=== PATIENT | male | born 1990 | race Caucasian/White ===

== ENCOUNTER 2017-03-06 00:04 | Emergency (ER) | payer MEDICAID ==
[~2017-03-06] VITALS: Ht 175.3 cm; Wt 99.8 kg
[2017-03-06 00:21] LABS: URINE BILIRUBIN - DIPSTICK NEGATIVE (NEG); URINE BLOOD NEGATIVE (NEG)
[2017-03-06] MEDS ORDERED: LITHATE5 MG PO (00:22)
[2017-03-06] MEDS ORDERED: PAXIL40 M1 PO (00:23)
[2017-03-06 00:28] LABS: AMPHETAMINES/METAMPHETAMINES NEGATIVE ng/mL (<1000)
[2017-03-06] MEDS ORDERED: TRAZODONE 50MG50 MG PO (00:32)
[2017-03-06] MEDS ORDERED: BUPROPION HYDR100 M2 PO (00:33)
[2017-03-06] MEDS ORDERED: LEVOTHYROXINE0.1 MG PO (00:33)
[2017-03-06] MEDS ORDERED: ATIVAN GENERIC0.5 MG PO (00:34)
[2017-03-06] MEDS ORDERED: METOPROLOL 25 M25 MG PO (00:35)
[2017-03-06] MEDS ORDERED: OLANZAPINE5 MG PO (00:35)
[2017-03-06] MEDS ORDERED: VENLAFAXINE75 M1 PO (00:36)
[2017-03-06 00:39] LABS: HEMOGLOBIN 15.9 g/dL (14.1-18.0); LYMPH # 2.8 K/mm3 (0.7-4.5); LYMPH % 36.3 % (10-50)
--- NOTE | 2017-03-06 00:43 | Emergency Room Report ---
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 N Clinical Suspician of Infection? N Mental Status: 1 - Regular (Normal Baseline) Sepsis Risk:Low Sepsis Risk Have you (or family members/close friends) recently traveled outside the [place]? N If Yes, where/when: Have you had exposure to infectious disease within the past month? N TB? Other? Specify: Source patient, RN notes reviewed, family, old records Exam Limitations no limitations Comment pt upset at intermediate and has hx of schizophrenia and has auditory hallucinations at times but none now - he denied overdose and no etoh and no suicidial thoughts - has been in [facility] in past Cardiac Chest Pain Chest pain indicative of cardiac No Timing/Duration this evening Severity moderate ALLERGIES Coded Allergies: lurasidone (From LATUDA) (Intermediate, 03/06/17) Home Medications Reported Medications LITHIUM ASPARTATE (Lithate) 5 MG PO TID Paroxetine HCl (Paxil) 40 MG PO DAILY TRAZODONE HCL (Trazodone HCl) 50 MG PO QHS BUPROPION HCL (Bupropion HCl Sr) 75 MG PO BID LEVOTHYROXINE SOD (Synthroid) 0.1 MG PO DAILY Lorazepam (Ativan) 0.5 MG PO BID Metoprolol Tartrate (Metoprolol 25MG) 50 MG PO BID Olanzapine (Olanzapine 5MG Tab) 15 MG PO QHS VENLAFAXINE HCL (Venlafaxine HCl ER) 75 MG PO BID History Medical History General CAD? No Angina: No [place]: No Hypertension? Yes Hyperlipidemia? No CHF? No DVT? No PE? No COPD? No Asthma? No Anemia? No GERD? No Gastric ulcers? No GI Bleed? No Hernia? No Thyroid Problems? Yes Hypothyroidism? No CVA? No Seizures? No Diabetes? No Renal Insuffiency? No End Stage Renal Disease? No UTI? No Stones? No BPH? No GB Disease: No Nephritic Syndrome? No Asplenia? No Hepatitis? No Sickle Cell Disease? No Arthritis? No Migraines? No Cataracts? No Glaucoma? No MRSA? No HIV? No TB? No Anxiety? Yes Depression? Yes Cancer? No More? Yes Additional hx: SCHIZOEFFECTIVE Immunization Hx DT/Tetanus Unknown Surgical Hx Previous Surgery?Y TONSILECTOMY Social History Smoking Hx Smoker: Current Some Day Smoker Tobacco: Yes Type Cigarettes Packs/day 1 1/2 - 2 Packs Alcohol Alcohol: No Drugs none Review of Systems All Other Systems Reviewed and Negative Constitutional denies fever Eyes denies drainage ENT denies: ear discharge, epistaxis, throat pain. Respiratory denies cough, denies shortness of breath, denies wheezing Cardiovascular denies chest pain, denies syncope Gastrointestinal denies abdominal pain, denies diarrhea, denies vomiting Genitourinary denies: dysuria, frequency, hesitancy, hematuria. Musculoskeletal denies back pain, denies joint pain, denies joint swelling, denies neck pain Skin denies rash Psychiatric/Neurological see HPI, depressed, denies seizure Physical Exam Vital Signs Vital Signs Date Time Temp Pulse Resp B/P Pulse O2 O2 Flow FiO2 Ox Delivery Rate 03/06 0011 98.4 85 20 148/90 95 - WBC >12,000 or <4,000 or 10% bands? 2 or more SIRS Criteria Met? B/P:148/90 MAP:109 Creatinine >2.0? UA output<0.5ml/kg/hr for 2 hrs? Platelet count >100,000? Lactate >2.0mmol/1? INR >1.2 or PTT > than 60 sec? Evidence of Organ Dysfunction? Provider documented clinical suspician of infection? N Sepsis Criteria Count: 1 Sepsis Risk: Low Sepsis Risk General Appearance no apparent distress Eye Exam - bilateral eye PERRL, bilateral eye EOMI Ear, Nose, Throat normal ENT inspection Neck supple Respiratory Status No: respiratory distress. Lung Sounds bilateral: lungs clear. 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 No Results/Orders Laboratory Tests 03/06/1729: [place] Pending 03/06/1729: Sodium 139, Potassium 3.6, Chloride 104, Carbon Dioxide 26, BUN 8, Creatinine 0.9, Estimated Creat Clear 177, Estimated GFR (MDRD) 103, Glucose 112 H, Calcium 9.2, Total Bilirubin 0.4, AST 33, ALT 79 H, Alkaline Phosphatase 43 L, Total Protein 8.1, Albumin 4.4, Globulin 3.7 H, Albumin/Globulin Ratio 1.2, TSH 3.74, Thyroxine (T4) 7.1, WBC 7.8, RBC 5.03, Hgb 15.9, Hct 47.9, MCV 95.1, RDW 12.9, Plt Count 251, MPV 8.0, Gran % 56.7, Gran # 4.4, Lymphocytes % 36.3, Monocytes % 3.9, Eosinophils % 2.5, Basophils % 0.6, Lymphocytes # 2.8, Monocytes # 0.3, Eosinophils # 0.2, Basophils # 0.1, PUBS MCHC 33.2, MCH 31.5 H , Salicylates 2.9, Acetaminophen 0 L, Alcohols 0 03/06/1714: Opiates Screen NEGATIVE, Urine Methadone Screen NEGATIVE, Barbiturates NEGATIVE, Phencyclidine Screen NEGATIVE, Amphetamines Screen NEGATIVE, Benzodiazepines Screen NEGATIVE, Cocaine Screen NEGATIVE, Marijuana (THC) Screen NEGATIVE, Urine Color YELLOW, Urine Appearance CLEAR, Urine pH 6.5, Ur Specific [place] <= 1.005 , Urine Protein NEGATIVE, Urine Ketones NEGATIVE, Urine Blood NEGATIVE, Urine Nitrate NEGATIVE, Urine Bilirubin NEGATIVE, Urine Urobilinogen 0.2, Ur Leukocyte Esterase NEGATIVE, Ur Squamous Epith Cells 3-5, Amorphous Sediment TRACE, Urine Glucose NEGATIVE Orders Procedure Date/time Status LITHIUM 03/06 42 Active URINALYSIS/COMPLETE 03/06 12 Complete THYROID STIMULATING HORMONE 03/06 12 Complete THYROXINE (T4) 03/06 12 Complete SALICYLATE 03/06 12 Complete DRUG ABUSE SCREEN (TRIAGE) 03/06 12 Complete COMPLETE METABOLIC PANEL 03/06 12 Complete CBC WITH AUTO DIFF 03/06 12 Complete ALCOHOL 03/06 12 Complete Acetaminophen 03/06 12 Complete Departure Departure Time of Disposition 0148 Disposition DC Home or Self Care(routine) Clinical Impression Primary Impression: Schizophrenia Qualifiers: Schizophrenia type: unspecified Qualified Code: F20.9 - Schizophrenia, unspecified Condition STABLE Patient Instructions DI for Post-schizophrenic Depression Additional Instructions resume meds and see your mental health worker Discharge Counseling Counseled pt/family regarding diagnosis, test results, follow up needs ED Critical Care Critical Care No at 0149
--- NOTE | 2017-03-06 00:43 | Emergency Room Report ---
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 N Clinical Suspician of Infection? N Mental Status: 1 - Regular (Normal Baseline) Sepsis Risk:Low Sepsis Risk Have you (or family members/close friends) recently traveled outside the [place]? N If Yes, where/when: Have you had exposure to infectious disease within the past month? N TB? Other? Specify: Source patient, RN notes reviewed, family, old records Exam Limitations no limitations Comment pt upset at custodial and has hx of schizophrenia and has auditory hallucinations at times but none now - he denied overdose and no etoh and no suicidial thoughts - has been in [facility] in past Cardiac Chest Pain Chest pain indicative of cardiac No Timing/Duration this evening Severity moderate ALLERGIES Coded Allergies: lurasidone (From LATUDA) (Intermediate, 03/06/17) Home Medications Reported Medications LITHIUM ASPARTATE (Lithate) 5 MG PO TID Paroxetine HCl (Paxil) 40 MG PO DAILY TRAZODONE HCL (Trazodone HCl) 50 MG PO QHS BUPROPION HCL (Bupropion HCl Sr) 75 MG PO BID LEVOTHYROXINE SOD (Synthroid) 0.1 MG PO DAILY Lorazepam (Ativan) 0.5 MG PO BID Metoprolol Tartrate (Metoprolol 25MG) 50 MG PO BID Olanzapine (Olanzapine 5MG Tab) 15 MG PO QHS VENLAFAXINE HCL (Venlafaxine HCl ER) 75 MG PO BID History Medical History General CAD? No Angina: No [place]: No Hypertension? Yes Hyperlipidemia? No CHF? No DVT? No PE? No COPD? No Asthma? No Anemia? No GERD? No Gastric ulcers? No GI Bleed? No Hernia? No Thyroid Problems? Yes Hypothyroidism? No CVA? No Seizures? No Diabetes? No Renal Insuffiency? No End Stage Renal Disease? No UTI? No Stones? No BPH? No GB Disease: No Nephritic Syndrome? No Asplenia? No Hepatitis? No Sickle Cell Disease? No Arthritis? No Migraines? No Cataracts? No Glaucoma? No MRSA? No HIV? No TB? No Anxiety? Yes Depression? Yes Cancer? No More? Yes Additional hx: SCHIZOEFFECTIVE Immunization Hx DT/Tetanus Unknown Surgical Hx Previous Surgery?Y TONSILECTOMY Social History Smoking Hx Smoker: Current Some Day Smoker Tobacco: Yes Type Cigarettes Packs/day 1 1/2 - 2 Packs Alcohol Alcohol: No Drugs none Review of Systems All Other Systems Reviewed and Negative Constitutional denies fever Eyes denies drainage ENT denies: ear discharge, epistaxis, throat pain. Respiratory denies cough, denies shortness of breath, denies wheezing Cardiovascular denies chest pain, denies syncope Gastrointestinal denies abdominal pain, denies diarrhea, denies vomiting Genitourinary denies: dysuria, frequency, hesitancy, hematuria. Musculoskeletal denies back pain, denies joint pain, denies joint swelling, denies neck pain Skin denies rash Psychiatric/Neurological see HPI, depressed, denies seizure Physical Exam Vital Signs Vital Signs Date Time Temp Pulse Resp B/P Pulse O2 O2 Flow FiO2 Ox Delivery Rate 03/06 0011 98.4 85 20 148/90 95 - WBC >12,000 or <4,000 or 10% bands? 2 or more SIRS Criteria Met? B/P:148/90 MAP:109 Creatinine >2.0? UA output<0.5ml/kg/hr for 2 hrs? Platelet count >100,000? Lactate >2.0mmol/1? INR >1.2 or PTT > than 60 sec? Evidence of Organ Dysfunction? Provider documented clinical suspician of infection? N Sepsis Criteria Count: 1 Sepsis Risk: Low Sepsis Risk General Appearance no apparent distress Eye Exam - bilateral eye PERRL, bilateral eye EOMI Ear, Nose, Throat normal ENT inspection Neck supple Respiratory Status No: respiratory distress. Lung Sounds bilateral: lungs clear. 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 No Results/Orders Laboratory Tests 03/06/1729: [place] Pending 03/06/1729: Sodium 139, Potassium 3.6, Chloride 104, Carbon Dioxide 26, BUN 8, Creatinine 0.9, Estimated Creat Clear 177, Estimated GFR (MDRD) 103, Glucose 112 H, Calcium 9.2, Total Bilirubin 0.4, AST 33, ALT 79 H, Alkaline Phosphatase 43 L, Total Protein 8.1, Albumin 4.4, Globulin 3.7 H, Albumin/Globulin Ratio 1.2, TSH 3.74, Thyroxine (T4) 7.1, WBC 7.8, RBC 5.03, Hgb 15.9, Hct 47.9, MCV 95.1, RDW 12.9, Plt Count 251, MPV 8.0, Gran % 56.7, Gran # 4.4, Lymphocytes % 36.3, Monocytes % 3.9, Eosinophils % 2.5, Basophils % 0.6, Lymphocytes # 2.8, Monocytes # 0.3, Eosinophils # 0.2, Basophils # 0.1, PUBS MCHC 33.2, MCH 31.5 H , Salicylates 2.9, Acetaminophen 0 L, Alcohols 0 03/06/1714: Opiates Screen NEGATIVE, Urine Methadone Screen NEGATIVE, Barbiturates NEGATIVE, Phencyclidine Screen NEGATIVE, Amphetamines Screen NEGATIVE, Benzodiazepines Screen NEGATIVE, Cocaine Screen NEGATIVE, Marijuana (THC) Screen NEGATIVE, Urine Color YELLOW, Urine Appearance CLEAR, Urine pH 6.5, Ur Specific [place] <= 1.005 , Urine Protein NEGATIVE, Urine Ketones NEGATIVE, Urine Blood NEGATIVE, Urine Nitrate NEGATIVE, Urine Bilirubin NEGATIVE, Urine Urobilinogen 0.2, Ur Leukocyte Esterase NEGATIVE, Ur Squamous Epith Cells 3-5, Amorphous Sediment TRACE, Urine Glucose NEGATIVE Orders Procedure Date/time Status LITHIUM 03/06 42 Active URINALYSIS/COMPLETE 03/06 12 Complete THYROID STIMULATING HORMONE 03/06 12 Complete THYROXINE (T4) 03/06 12 Complete SALICYLATE 03/06 12 Complete DRUG ABUSE SCREEN (TRIAGE) 03/06 12 Complete COMPLETE METABOLIC PANEL 03/06 12 Complete CBC WITH AUTO DIFF 03/06 12 Complete ALCOHOL 03/06 12 Complete Acetaminophen 03/06 12 Complete Departure Departure Time of Disposition 0148 Disposition DC Home or Self Care(routine) Clinical Impression Primary Impression: Schizophrenia Qualifiers: Schizophrenia type: unspecified Qualified Code: F20.9 - Schizophrenia, unspecified Condition STABLE Patient Instructions DI for Post-schizophrenic Depression Additional Instructions resume meds and see your mental health worker Discharge Counseling Counseled pt/family regarding diagnosis, test results, follow up needs ED Critical Care Critical Care No at 0149
[2017-03-06 02:03] VITALS: BP 148/90
--- OUTSIDE RECORDS SUMMARY | 2017-03-11 00:45 | External Medical Summary Rpt | CCD ---
Author Author , ZEB Organization ZEB Address Unknown Phone [email or web address] Purpose Continuity of Care Document - 11-04-2013 through 2016 Results Labs Lab Lab Date Result Refere Interp Status Commen Order Detail nces retati t Range on Comprehensive metabolic 2000 panel in Serum or Plasma (07-17-2016 16:30) Sodium 144 137mm complet [Moles/ 017 mmol/L ol/L - ed volume] 16:30 145mm in ol/L Serum or Plasma Potassi 4.2 3.5mm complet um 017 mmol/L ol/L - ed [Moles/ 16:30 5.1mm volume] ol/L in Serum or Plasma Chlorid 105 98mmo complet e 017 mmol/L l/L - ed [Moles/ 16:30 107mm volume] ol/L in Serum or Plasma Carbon 22 22mmo complet dioxide 017 mmol/L l/L - ed , total 16:30 30mmo l/L [Moles/ volume] in Blood Glucose 108 74mg/ High complet 017 mg/dL dL - ed [Mass/v 16:30 106mg olume] /dL in Serum or Plasma Urea 12 7mg/d complet nitroge 017 mg/dL L - ed n 16:30 20mg/ [Mass/v dL olume] in Serum or Plasma Creatin 0.7 0.7mg complet ine 017 mg/dL /dL - ed [Mass/v 16:30 1.5mg olume] /dL in Serum or Plasma Protein 8.5 6.3g/ High complet 017 g/dL dL - ed [Mass/v 16:30 8.2g/ olume] dL in Serum or Plasma Albumin 4.9 3.5g/ complet 017 g/dL dL - ed [Mass/v 16:30 5.0g/ olume] dL in Serum or Plasma Calcium 9.7 8.4mg complet 017 mg/dL /dL - ed [Mass/v 16:30 10.2m olume] g/dL in Serum or Plasma Bilirub 0.4 0.2mg complet in.tota 017 mg/dL /dL - ed l 16:30 1.3mg [Mass/v /dL olume] in Serum or Plasma Asparta 27 U/L 15U/L complet te 017 - ed aminotr 16:30 46U/L ansfera se [Enzyma tic activit y/volum e] in Serum or Plasma Alanine 46 U/L 13U/L complet 017 - ed aminotr 16:30 69U/L ansfera se [Enzyma tic activit y/volum e] in Serum or Plasma Alkalin 48 U/L 38U/L complet e 017 - ed phospha 16:30 126U/ tase L [Enzyma tic activit y/volum e] in Serum or Plasma CBC W Auto Differential panel in Blood (07-17-2016 16:30) Leukocy 6.06 4.510 complet ej 017 10*3/uL *3/uL - ed [#/volu 16:30 me] in 11.01 Blood 0*3/uL by Automat ed count Erythro 5.32 4.510 complet cytes 017 10*6/uL *6/uL - ed [#/volu 16:30 me] in 5.910 Blood *6/uL by Automat ed count Hemoglo 16.2 13.5g complet bin 017 g/dL /dL - ed [Mass/v 16:30 17.5g olume] /dL in Blood Hematoc 47.6 % 41.0% complet rit 017 - ed [Volume 16:30 53.0% Fractio n] of Blood by Automat ed count Erythro 89.5 fL 80.0f complet cyte 017 L - ed mean 16:30 100.0 corpusc fL ular volume [Entiti c volume] by Automat ed count Erythro 30.5 pg 26.0p complet cyte 017 g - ed mean 16:30 34.0p corpusc g ular hemoglo bin [Entiti c mass] by Automat ed count Erythro 34.0 31.0g complet cyte 017 g/dL /dL - ed mean 16:30 37.0g corpusc /dL ular hemoglo bin concent ration [Mass/v olume] by Automat ed count Erythro 13.6 % 12.0% complet cyte 017 - ed distrib 16:30 16.8% ution width [Ratio] by Automat ed count Platele [id number] complet ts 017 10*3/uL *3/uL - ed [#/volu 16:30 me] [place] [id number] Blood *3/uL by Automat ed count Platele 10.2 fL 6.7fL complet t mean 017 - ed volume 16:30 10.8f [Entiti L c volume] in Blood by Automat ed count Neutrop 54 % 45% - complet hils/10 017 80% ed 0 16:30 leukocy ej in Blood by Automat ed count Lymphoc 37 % 15% - complet ytes/10 017 50% ed 0 16:30 leukocy ej in Blood by Automat ed count Monocyt 6 % 0% - complet es/100 017 15% ed leukocy 16:30 ej in Blood by Automat ed count Eosinop 3 % 0% - complet hils/10 017 7% ed 0 16:30 leukocy ej in Blood by Automat ed count Basophi 0 % 0% - complet ls/100 017 2% ed leukocy 16:30 ej in Blood by Automat ed count IMMATUR 0 % 0 complet E 017 ed GRANULO 16:30 CYTE% Nucleat 0 0/100 complet ed 017 /100{WB {WBC} - ed erythro 16:30 C} cytes/1 0/100 00 {WBC} leukocy ej [Ratio] in Blood by Automat ed count Neutrop 3.27 2.010 complet hils 017 10*3/uL *3/uL - ed [#/volu 16:30 me] in 8.810 Blood *3/uL by Automat ed count Lymphoc 2.23 0.710 complet ytes 017 10*3/uL *3/uL - ed [#/volu 16:30 me] in 5.510 Blood *3/uL by Automat ed count Monocyt 0.39 0.010 complet es 017 10*3/uL *3/uL - ed [#/volu 16:30 me] in 1.710 Blood *3/uL by Automat ed count Eosinop 0.15 0.010 complet hils 017 10*3/uL *3/uL - ed [#/volu 16:30 me] in 0.810 Blood *3/uL by Automat ed count Basophi 0.01 0.010 complet ls 017 10*3/uL *3/uL - ed [#/volu 16:30 me] in 0.210 Blood *3/uL by Automat ed count IMMATUR 0.01 <1 complet E 017 10*3/uL ed GRANULO 16:30 CYTE\E\ P\E\ Drugs identified in Urine by Screen method (07-17-2016 16:19) Ampheta NEGATIV NEGATIV complet mines 017 E E ed [Presen 16:19 ce] in Urine by Screen method Barbitu NEGATIV NEGATIV complet rates 017 E E ed [Presen 16:19 ce] in Urine Benzodi NEGATIV NEGATIV complet azepine 017 E E ed s 16:19 [Presen ce] in Urine Cannabi NEGATIV NEGATIV complet noids 017 E E ed [Presen 16:19 ce] in Urine by Screen method Cocaine NEGATIV NEGATIV complet 017 E E ed [Presen 16:19 ce] in Urine by Screen method Opiates NEGATIV NEGATIV complet 017 E E ed [Presen 16:19 ce] in Urine by Screen method
--- OUTSIDE RECORDS SUMMARY | 2017-03-11 00:45 | External Medical Summary Rpt | CCD ---
Author Author , ZEB CARRINGTON Address Unknown Phone [email or web address] Immunization Name Date Rout CVX Reac Dose Comm Prov Is Faci e tion ent ider Refu lity Give sed n Infl 11-1 150 999 Hist NORT No NORT uenz 9-20 ori ONCM ONCM a 14 al A1 A1 Quad Info Inj rmat ion - Sour ce Unsp ecif ied Infl 11-0 144 999 Hist NORT No NORT uenz 1-20 ori ONCM ONCM a, 13 al A1 A1 Intr Info ader rmat m ion - Sour ce Unsp ecif ied Infl 09-1 144 999 Hist NORT No NORT uenz 8-20 ori ONCM ONCM a, 12 al A1 A1 Intr Info ader rmat m ion - Sour ce Unsp ecif ied
--- OUTSIDE RECORDS SUMMARY | 2017-03-11 00:45 | External Medical Summary Rpt | CCD ---
Author Author , ZEB Organization ZEB Address Unknown Phone [email or web address] Purpose Continuity of Care Document - 11-04-2013 [...] [Ratio] by Automat ed count Platele [id number] complet ts 017 10*3/uL *3/uL - ed [#/volu 16:30 me] in [id number] Blood *3/uL by Automat ed count Platele [...]
--- OUTSIDE RECORDS SUMMARY | 2017-03-11 00:45 | External Medical Summary Rpt | CCD ---
Author Author ZEB Address Unknown Phone [email or web address] Purpose Continuity of Care Document - through 2016
--- OUTSIDE RECORDS SUMMARY | 2017-03-11 00:45 | External Medical Summary Rpt | CCD ---
Author Author ZEB Address Unknown Phone [email or web address] Purpose Continuity of Care Document - through 2016
--- OUTSIDE RECORDS SUMMARY | 2017-03-11 00:45 | External Medical Summary Rpt | CCD ---
Author Author , ZEB CARRINGTON Address Unknown Phone [email or web address] Immunization Name Date Rout CVX Reac Dose [...]
--- OUTSIDE RECORDS SUMMARY | 2017-03-11 00:47 | External Medical Summary Rpt ---
Author Author [employer], [employer] Organization [employer] Address Unknown Phone Unavailable Results TSH Observa Value Referen Units Interpr Notes Date tion ce etation Range Thyrotr 0.838 0.270 - mcIU/mL No No Sep 14 opin 4.200 informa informa 2016 [Units/ tion in tion in 8:26 AM volume] source source in data data Serum or Plasma Hemogram Observa Value Referen Units Interpr Notes Date tion ce etation Range LEUKOCY 6.9 4.0 - x10(3)/ No No Sep 14 ERIKA 11.0 mcL informa informa 2017 tion in tion in 6:25 AM source source data data Erythro 5.34 4.30 - x10(6)/ No No Sep 14 cytes 5.81 mcL informa informa 2016 [#/volu tion in tion in 6:25 AM me] in source source Blood data data by Automat ed count Hemoglo 16.3 13.5 - gm/dL No No Sep 14 bin 17.1 informa informa 2016 [Mass/v tion in tion in 6:25 AM olume] source source in data data Blood Hematoc 48.1 38.9 - % No No Sep 14 rit 51.6 informa informa 2016 [Volume tion in tion in 6:25 AM source source Fractio data data n] of Blood by Automat ed count Erythro 90.1 82.5 - fL No No Sep 14 cyte 99.8 informa informa 2017 mean tion in tion in 6:25 AM corpusc source source ular data data volume [Entiti c volume] by Automat ed count Erythro 30.5 27.0 - pg No No Sep 14 cyte 34.3 informa informa 2017 mean tion in tion in 6:25 AM corpusc source source ular data data hemoglo bin [Entiti c mass] by Automat ed count Erythro 33.9 32.1 - gm/dL No No Sep 14 cyte 35.3 informa informa 2016 mean tion in tion in 6:25 AM corpusc source source ular data data hemoglo bin concent ration [Mass/v olume] by Automat ed count Erythro 13.6 11.5 - % No No Sep 14 cyte 15.0 informa informa 2016 distrib tion in tion in 6:25 AM ution source source width data data [Ratio] by Automat ed count Platele 207 144 - x10(3)/ No No Sep 14 ts 423 mcL informa informa 2016 [#/volu tion in tion in 6:25 AM me] in source source Blood data data by Automat ed count MPV 8.2 6.8 - fL No No Sep 14 10.8 informa informa 2016 tion in tion in 6:25 AM source source data data ALCOHOL PROFILE Observa Value Referen Units Interpr Notes Date tion ce etation Range Ethanol < 0.01 0 - % No Interpr Aug 17 0.04 informa etive 2017 [Moles/ tion in Text0.0 1:56 AM volume] source 0-0.04% in data Unspeci Presume fied d not specime under n the influen ce0.05- 0.079% No presump tion>0. 08% Presume d under the influen ce>0.4% Toxic COMPREHENSIVE METABOLIC PANEL Observa Value Referen Units Interpr Notes Date tion ce etation Range Sodium 138 136 - mmol/L No No Aug 17 [Moles/ 145 informa informa 2016 volume] tion in tion in 1:56 AM in source source Serum data data or Plasma Potassi 3.7 3.5 - mmol/L No No Aug 17 um 5.1 informa informa 2016 [Moles/ tion in tion in 1:56 AM volume] source source in data data Serum or Plasma Chlorid 96.2 98 - mmol/L Low No Aug 17 e 107 informa 2016 [Moles/ tion in 1:56 AM volume] source in data Serum or Plasma Carbon 25 22 - 29 mmol/L No No Aug 17 dioxide informa informa 2016 , total tion in tion in 1:56 AM source source [Moles/ data data volume] in Serum or Plasma Anion 17 8 - 16 No High No Aug 17 gap in informa informa 2017 Serum tion in tion in 1:56 AM or source source Plasma data data Urea 13.5 6 - 20 mg/dL No No Aug 17 nitroge informa informa 2016 n tion in tion in 1:56 AM [Mass/v source source olume] data data in Serum or Plasma Creatin 0.8 0.7 - mg/dL No No Aug 17 ine 1.2 informa informa 2016 [Mass/v tion in tion in 1:56 AM olume] source source in data data Serum or Plasma Glomeru > 59 No No No An eGFR Aug 17 lar informa informa informa of <60 2017 filtrat tion in tion in tion in 1:56 AM ion source source source mL/min/ rate/1. data data data 1.73 m2 73 sq for M.predi three cted by months or more Creatin ine-bas isindic ed ative formula of (MDRD) chronic kidney disease . Patient s with eGFRval ues > or = 60 mL/min/ 1.73 m2 may have chronic kidneyd isease if evidenc e of persist ent protein uria is present .Refere nce: [email or web address] [email or web address]* Units are mL/min/ 1.73m2 Urea 18.0 7.0 - No No No Aug 17 nitroge 25.0 informa informa informa 2017 n/Creat tion in tion in tion in 1:56 AM inine source source source [Mass data data data ratio] in Serum or Plasma Glucose 95 70 - mg/dL No No Aug 17 100 informa informa 2016 [Mass/v tion in tion in 1:56 AM olume] source source in data data Serum or Plasma Osmolal 275 275 - mosm/L No No Aug 17 ity of 295 informa informa 2016 Serum tion in tion in 1:56 AM or source source Plasma data data by calcula tion Calcium 9.5 8.4 - mg/dL No No Aug 17 10.2 informa informa 2016 [Mass/v tion in tion in 1:56 AM olume] source source in data data Serum or Plasma Bilirub 0.3 0.0 - mg/dL No No Aug 17 in.tota 1.2 informa informa 2017 l tion in tion in 1:56 AM [Mass/v source source olume] data data in Serum or Plasma Asparta 17 0 - 40 No No No Aug 17 te informa informa informa 2017 aminotr tion in tion in tion in 1:56 AM ansfera source source source se data data data [Enzyma tic activit y/volum e] in Serum or Plasma Alanine 30 0 - 41 No No No Aug 17 informa informa informa 2017 aminotr tion in tion in tion in 1:56 AM ansfera source source source se data data data [Enzyma tic activit y/volum e] in Serum or Plasma Protein 8.1 6.4 - g/dL No No Aug 17 8.3 informa informa 2016 [Mass/v tion in tion in 1:56 AM olume] source source in data data Serum or Plasma Albumin 4.8 3.5 - g/dL No No Aug 17 5.2 informa informa 2017 [Mass/v tion in tion in 1:56 AM olume] source source in data data Serum or Plasma Globuli 3.3 1.5 - No No No Aug 17 n 3.8 informa informa informa 2016 [Mass/v tion in tion in tion in 1:56 AM olume] source source source in data data data Serum by calcula tion Albumin 1.5 1.1 - No No No Aug 17 /Globul 1.8 informa informa informa 2017 in tion in tion in tion in 1:56 AM [Mass source source source ratio] data data data in Serum or Plasma Alkalin 45 40 - No No No Aug 17 e 130 informa informa informa 2017 phospha tion in tion in tion in 1:56 AM tase source source source [Enzyma data data data tic activit y/volum e] in Serum or Plasma CBC WITH AUTO DIFF REFLEX Observa Value Referen Units Interpr Notes Date tion ce etation Range Leukocy 7.9 4.8 - No No No Aug 17 erika 10.8 informa informa informa 2016 [#/volu tion in tion in tion in 1:56 AM me] in source source source Blood data data data by Automat ed count Erythro 5.32 4.70 - No No No Aug 17 cytes 6.10 informa informa informa 2017 [#/volu tion in tion in tion in 1:56 AM me] in source source source Blood data data data by Automat ed count Hemoglo 16.6 14.0 - g/dL No No Aug 17 bin 18.0 informa informa 2017 [Mass/v tion in tion in 1:56 AM olume] source source in data data Blood Hematoc 48.2 42.0 - % No No Aug 17 rit 52.0 informa informa 2017 [Volume tion in tion in 1:56 AM source source Fractio data data n] of Blood by Automat ed count Erythro 90.6 80 - 94 fL No No Aug 17 cyte informa informa 2017 mean tion in tion in 1:56 AM corpusc source source ular data data volume [Entiti c volume] by Automat ed count Erythro 31.2 27 - 31 pg High No Aug 17 cyte informa 2016 mean tion in 1:56 AM corpusc source ular data hemoglo bin [Entiti c mass] by Automat ed count Erythro 34.4 32 - 36 g/dL No No Aug 17 cyte informa informa 2017 mean tion in tion in 1:56 AM corpusc source source ular data data hemoglo bin concent ration [Mass/v olume] by Automat ed count Erythro 13.3 11.5 - % No No Aug 17 cyte 14.5 informa informa 2017 distrib tion in tion in 1:56 AM ution source source width data data [Ratio] by Automat ed count Platele 312 130 - No No No Aug 17 ts 400 informa informa informa 2016 [#/volu tion in tion in tion in 1:56 AM me] in source source source Blood data data data by Automat ed count Platele 9.5 9.3 - fL No No Aug 17 t mean 11.9 informa informa 2017 volume tion in tion in 1:56 AM [Entiti source source c data data volume] in Blood by [place]on-Ec ker Neutrop 61.2 43.1 - % No No Aug 17 hils/10 74.8 informa informa 2017 0 tion in tion in 1:56 AM leukocy source source erika in data data Blood by Automat ed count Lymphoc 29.9 17.6 - % No No Mar 22 ytes/10 40.8 informa informa 2017 0 tion in tion in 1:56 AM leukocy source source erika in data data Blood by Automat ed count Monocyt 5.9 4.4 - % No No Jul 22 es/100 11.0 informa informa 2017 leukocy tion in tion in 1:56 AM erika in source source Blood data data by Automat ed count Eosinop 2.0 0.0 - % No No Jul 22 hils/10 5.8 informa informa 2017 0 tion in tion in 1:56 AM leukocy source source erika in data data Blood by Automat ed count Basophi 0.4 0 - 1.6 % No No Mar 22 ls/100 informa informa 2017 leukocy tion in tion in 1:56 AM erika in source source Blood data data by Automat ed count Neutrop 4.8 1.8 - No No No Jul 22 hils 7.0 informa informa informa 2017 [#/volu tion in tion in tion in 1:56 AM me] in source source source Blood data data data by Automat ed count Lymphoc 2.4 1.0 - No No No Jul 22 ytes 3.3 informa informa informa 2017 [#/volu tion in tion in tion in 1:56 AM me] in source source source Blood data data data by Automat ed count Monocyt 0.5 0.3 - No No No Jul 22 es/100 0.9 informa informa informa 2017 leukocy tion in tion in tion in 1:56 AM erika in source source source Blood data data data by Automat ed count Eosinop 0.2 0.0 - No No No Jul 22 hils 0.5 informa informa informa 2017 [#/volu tion in tion in tion in 1:56 AM me] in source source source Blood data data data by Automat ed count Basophi 0.0 0.0 - No No If a Mar 22 ls 0.2 informa informa manual 2017 [#/volu tion in tion in differe 1:56 AM me] in source source ntial Blood data data is by indicat Automat ed, ed submit count order within4 8 hours" Granulo 0.6 No No No No Mar 22 cytes informa informa informa informa 2017 Immatur tion in tion in tion in tion in 1:56 AM e source source source source [Presen data data data data ce] in Blood by Automat ed count IMMATUR 0.05 No No No No Aug 17 E informa informa informa informa 2017 GRANULO tion in tion in tion in tion in 1:56 AM CYTE source source source source COUNT data data data data Nucleat 0 No /100{WB No No Aug 17 ed informa C} informa informa 2017 erythro tion in tion in tion in 1:56 AM cytes/1 source source source 00 data data data leukocy erika [Ratio] in Blood by Automat ed count DAU10 (URINE DRUG SCREEN) Observa Value Referen Units Interpr Notes Date tion ce etation Range Opiates NEGATIV NEGATIV No No No Aug 17 E E informa informa informa 2016 [Presen tion in tion in tion in 1:51 AM ce] in source source source Urine data data data by Screen method Oxycodo NEGATIV NEGATIV No No No Aug 17 ne E E informa informa informa 2016 [Presen tion in tion in tion in 1:51 AM ce] in source source source Urine data data data by Screen method Methaqu NEGATIV NEGATIV No No No Aug 17 alone E E informa informa informa 2016 [Presen tion in tion in tion in 1:51 AM ce] in source source source Urine data data data by Screen method Barbitu NEGATIV NEGATIV No No No Aug 17 rates E E informa informa informa 2016 [Presen tion in tion in tion in 1:51 AM ce] in source source source Urine data data data by Screen method Phencyc NEGATIV NEGATIV No No No Aug 17 lidine E E informa informa informa 2016 [Presen tion in tion in tion in 1:51 AM ce] in source source source Unknown data data data substan ce by Screen method Ampheta NEGATIV NEGATIV No No No Aug 17 mine E E informa informa informa 2017 [Presen tion in tion in tion in 1:51 AM ce] in source source source Urine data data data by Screen method BENZODI NEGATIV NEGATIV No No No Aug 17 AZEPINE E E informa informa informa 2017 SCREEN tion in tion in tion in 1:51 AM source source source data data data Benzoyl NEGATIV NEGATIV No No No Aug 17 ecgonin E E informa informa informa 2017 e tion in tion in tion in 1:51 AM [Presen source source source ce] in data data data Serum or Plasma by Confirm method Methado NEGATIV NEGATIV No No No Aug 17 ne E E informa informa informa 2017 [Presen tion in tion in tion in 1:51 AM ce] in source source source Urine data data data by Screen method Cannabi NEGATIV NEGATIV No No No Aug 17 noids E E informa informa informa 2016 [Presen tion in tion in tion in 1:51 AM ce] in source source source Urine data data data by Screen method [facility] ([facility] REFL MICRO CULTURE) Observa Value Referen Units Interpr Notes Date tion ce etation Range CLEAN CATCH Specime CLEAN No No No No Aug 17 n CATCH informa informa informa informa 2017 source tion in tion in tion in tion in 1:51 AM [Identi source source source source fier] data data data data of Unspeci fied specime n Color YELLOW No No No No Aug 17 of informa informa informa informa 2017 Urine tion in tion in tion in tion in 1:51 AM source source source source data data data data Appeara CLEAR No No No No Aug 17 nce of informa informa informa informa 2017 Urine tion in tion in tion in tion in 1:51 AM source source source source data data data data Erythro NEGATIV NEGATIV No No No Aug 17 cytes E E informa informa informa 2016 [Presen tion in tion in tion in 1:51 AM ce] in source source source Urine data data data pH of 5.5 4.5 - No No No Aug 17 Urine 8.0 informa informa informa 2017 by Test tion in tion in tion in 1:51 AM strip source source source data data data Specifi 1.024 1.003 - No No No Aug 17 c 1.035 informa informa informa 2017 gravity tion in tion in tion in 1:51 AM of source source source Urine data data data by Automat ed test strip Protein 30 NEGATIV No Abnorma No Aug 17 mg/dL E informa l alert informa 2016 [Presen tion in tion in 1:51 AM ce] in source source Urine data data by Test strip Glucose NEGATIV NEGATIV No No No Aug 17 E E informa informa informa 2017 [Presen tion in tion in tion in 1:51 AM ce] in source source source Urine data data data Ketones NEGATIV NEGATIV No No No Aug 17 E E informa informa informa 2016 [Presen tion in tion in tion in 1:51 AM ce] in source source source Urine data data data by Test strip Nitrite NEGATIV NEGATIV No No No Aug 17 E E informa informa informa 2017 [Presen tion in tion in tion in 1:51 AM ce] in source source source Urine data data data by Test strip Bilirub NEGATIV NEGATIV No No THE Aug 17 in E E informa informa COLOR 2017 [Presen tion in tion in OF THE 1:51 AM ce] in source source URINE Urine data data CAN by Test CAUSE A strip POSITIV E BILIRUB IN. Urobili 0.2 0.0 - No No No Aug 17 nogen 1.0 informa informa informa 2016 [Presen tion in tion in tion in 1:51 AM ce] in source source source Urine data data data Leukocy NEGATIV NEGATIV No No No Aug 17 te E E informa informa informa 2017 esteras tion in tion in tion in 1:51 AM e source source source [Presen data data data ce] in Urine by Automat ed test strip Comprehensive metabolic 2000 panel in Serum or Plasma Observa Value Referen Units Interpr Notes Date tion ce etation Range Sodium 144 137 - mmol/L No No Jul 17 [Moles/ 145 informa informa 2017 volume] tion in tion in 4:30 PM in source source Serum data data or Plasma Potassi 4.2 3.5 - mmol/L No No Jul 17 um 5.1 informa informa 2017 [Moles/ tion in tion in 4:30 PM volume] source source in data data Serum or Plasma Chlorid 105 98 - mmol/L No No b 19 e 107 informa informa 2016 [Moles/ tion in tion in 4:30 PM volume] source source in data data Serum or Plasma Carbon 22 22 - 30 mmol/L No No b 19 dioxide informa informa 2017 , total tion in tion in 4:30 PM source source [Moles/ data data volume] in Blood Glucose 108 74 - mg/dL High No b 106 informa 2016 [Mass/v tion in 4:30 PM olume] source in data Serum or Plasma Urea 12 7 - 20 mg/dL No No Jun 19 nitroge informa informa 2017 n tion in tion in 4:30 PM [Mass/v source source olume] data data in Serum or Plasma Creatin 0.7 0.7 - mg/dL No No Jul 17 ine 1.5 informa informa 2016 [Mass/v tion in tion in 4:30 PM olume] source source in data data Serum or Plasma Protein 8.5 6.3 - g/dL High No Jul 17 8.2 informa 2016 [Mass/v tion in 4:30 PM olume] source in data Serum or Plasma Albumin 4.9 3.5 - g/dL No No Jul 17 5.0 informa informa 2016 [Mass/v tion in tion in 4:30 PM olume] source source in data data Serum or Plasma Calcium 9.7 8.4 - mg/dL No No Jul 17 10.2 informa informa 2016 [Mass/v tion in tion in 4:30 PM olume] source source in data data Serum or Plasma Bilirub 0.4 0.2 - mg/dL No No Jul 17 in.tota 1.3 informa informa 2016 l tion in tion in 4:30 PM [Mass/v source source olume] data data in Serum or Plasma Asparta 27 15 - 46 U/L No No Jul 17 te informa informa 2017 aminotr tion in tion in 4:30 PM ansfera source source se data data [Enzyma tic activit y/volum e] in Serum or Plasma Alanine 46 13 - 69 U/L No No Jul 17 informa informa 2016 aminotr tion in tion in 4:30 PM ansfera source source se data data [Enzyma tic activit y/volum e] in Serum or Plasma Alkalin 48 38 - U/L No No Jul 17 e 126 informa informa 2016 phospha tion in tion in 4:30 PM tase source source [Enzyma data data tic activit y/volum e] in Serum or Plasma CBC W Auto Differential panel in Blood Observa Value Referen Units Interpr Notes Date tion ce etation Range Leukocy 6.06 4.5 - 10*3/uL No No Jul 17 erika 11.0 informa informa 2016 [#/volu tion in tion in 4:30 PM me] in source source Blood data data by Automat ed count Erythro 5.32 4.5 - 10*6/uL No No Jul 17 cytes 5.9 informa informa 2016 [#/volu tion in tion in 4:30 PM me] in source source Blood data data by Automat ed count Hemoglo 16.2 13.5 - g/dL No No Jul 17 bin 17.5 inform informa 2016 [Mass/v tion in tion in 4:30 PM olume] source source in data data Blood Hematoc 47.6 41.0 - % No No Jul 17 rit 53.0 informa informa 2016 [Volume tion in tion in 4:30 PM source source Fractio data data n] of Blood by Automat ed count Erythro 89.5 80.0 - fL No No Jul 17 cyte 100.0 informa informa 2016 mean tion in tion in 4:30 PM corpusc source source ular data data volume [Entiti c volume] by Automat ed count Erythro 30.5 26.0 - pg No No Jul 17 cyte 34.0 informa informa 2016 mean tion in tion in 4:30 PM corpusc source source ular data data hemoglo bin [Entiti c mass] by Automat ed count Erythro 34.0 31.0 - g/dL No No Jul 17 cyte 37.0 informa informa 2016 mean tion in tion in 4:30 PM corpusc source source ular data data hemoglo bin concent ration [Mass/v olume] by Automat ed count Erythro 13.6 12.0 - % No No Jul 17 cyte 16.8 informa informa 2017 distrib tion in tion in 4:30 PM ution source source width data data [Ratio] by Automat ed count Platele 248 140 - 10*3/uL No No Jul 17 ts 440 informa informa 2017 [#/volu tion in tion in 4:30 PM me] in source source Blood data data by Automat ed count Platele 10.2 6.7 - fL No No Jul 17 t mean 10.8 informa informa 2017 volume tion in tion in 4:30 PM [Entiti source source c data data volume] in Blood by Automat ed count Neutrop 54 45 - 80 % No No Jul 17 hils/10 informa informa 2017 0 tion in tion in 4:30 PM leukocy source source erika in data data Blood by Automat ed count Lymphoc 37 15 - 50 % No No Jul 17 ytes/10 informa informa 2017 0 tion in tion in 4:30 PM leukocy source source erika in data data Blood by Automat ed count Monocyt 6 0 - 15 % No No Jul 17 es/100 informa informa 2017 leukocy tion in tion in 4:30 PM erika in source source Blood data data by Automat ed count Eosinop 3 0 - 7 % No No Jul 17 hils/10 informa informa 2017 0 tion in tion in 4:30 PM leukocy source source erika in data data Blood by Automat ed count Basophi 0 0 - 2 % No No Jul 17 ls/100 informa informa 2017 leukocy tion in tion in 4:30 PM erika in source source Blood data data by Automat ed count IMMATUR 0 0 % No No Jul 17 E informa informa 2017 GRANULO tion in tion in 4:30 PM CYTE% source source data data Nucleat 0 0 - 0 /100{WB No No Jul 17 ed C} informa informa 2017 erythro tion in tion in 4:30 PM cytes/1 source source 00 data data leukocy erika [Ratio] in Blood by Automat ed count Neutrop 3.27 2.0 - 10*3/uL No No Jul 17 hils 8.8 informa informa 2016 [#/volu tion in tion in 4:30 PM me] in source source Blood data data by Automat ed count Lymphoc 2.23 0.7 - 10*3/uL No No Jul 17 ytes 5.5 informa informa 2016 [#/volu tion in tion in 4:30 PM me] in source source Blood data data by Automat ed count Monocyt 0.39 0.0 - 10*3/uL No No Jul 17 es 1.7 informa informa 2016 [#/volu tion in tion in 4:30 PM me] in source source Blood data data by Automat ed count Eosinop 0.15 0.0 - 10*3/uL No Jul 17 hils 0.8 informa informa 2016 [#/volu tion in tion in 4:30 PM me] in source source Blood data data by Automat ed count Basophi 0.01 0.0 - 10*3/uL No Jul 17 ls 0.2 informa informa 2016 [#/volu tion in tion in 4:30 PM me] in source source Blood data data by Automat ed count IMMATUR 0.01 <1 10*3/uL No No Jul 17 E informa informa 2016 GRANULO tion in tion in 4:30 PM CYTE\\E\\ source source P\\E\\ data data Drugs identified in Urine by Screen method Observa Value Referen Units Interpr Notes Date tion ce etation Range Include Methadone? N Include Tricyclic? N UA Source: VOIDED Ampheta NEGATIV NEGATIV No No AMPHETA Jul 17 mines E E informa informa MINE 2016 [Presen tion in tion in CUT-OFF 4:19 PM ce] in source source VALUE Urine data data = 500 by NG/MLUR Screen INE method DRUG SCREEN TO BE USED FOR MEDICAL PURPOSE S ONLY. Barbitu NEGATIV NEGATIV No No BARBITU Jul 17 rates E E informa informa RATE 2016 [Presen tion in tion in CUT-OFF 4:19 PM ce] in source source VALUE Urine data data = 200 NG/MLUR INE DRUG SCREEN TO BE USED FOR MEDICAL PURPOSE S ONLY. Benzodi NEGATIV NEGATIV No No BENZODI Jul 17 azepine E E informa informa AZEPINE 2017 s tion in tion in 4:19 PM [Presen source source CUT-OFF ce] in data data VALUE Urine = 200 NG/MLUR INE DRUG SCREEN TO BE USED FOR MEDICAL PURPOSE S ONLY. Cannabi NEGATIV NEGATIV No No CANNABI Jul 17 noids E E informa informa NOID 2017 [Presen tion in tion in CUT-OFF 4:19 PM ce] in source source VALUE Urine data data = 50 by NG/MLUR Screen INE method DRUG SCREEN TO BE USED FOR MEDICAL PURPOSE S ONLY. Cocaine NEGATIV NEGATIV No No COCAINE Jul 17 E E informa informa 2017 [Presen tion in tion in CUT-OFF 4:19 PM ce] in source source VALUE Urine data data = 150 by NG/MLUR Screen INE method DRUG SCREEN TO BE USED FOR MEDICAL PURPOSE S ONLY. Opiates NEGATIV NEGATIV No No OPIATES Jul 17 E E informa informa 2017 [Presen tion in tion in CUT-OFF 4:19 PM ce] in source source VALUE Urine data data = 2000 by NG/MLUR Screen INE method DRUG SCREEN TO BE USED FOR MEDICAL PURPOSE S ONLY. DRUG SCREEN URINE SHELLY Observa Value Referen Units Interpr Notes Date tion ce etation Range URINE No No No No Jun 12 informa informa informa informa 2016 tion in tion in tion in tion in 6:58 AM source source source source data data data data AMPHETA NEGATIV NEGATIV No No No Jun 12 MINES E E informa informa informa 2015 tion in tion in tion in 6:58 AM source source source data data data BARBITU NEGATIV NEGATIV No No No Jun 12 RATES E E informa informa informa 2015 tion in tion in tion in 6:58 AM source source source data data data COCAINE NEGATIV NEGATIV No No No Jun 12 METAB E E informa informa informa 2015 tion in tion in tion in 6:58 AM source source source data data data OPIATES NEGATIV NEGATIV No No No Jun 12 E E informa informa informa 2015 tion in tion in tion in 6:58 AM source source source data data data BENZODI NEGATIV NEGATIV No No No Jun 12 AZEPINE E E informa informa informa 2016 S tion in tion in tion in 6:58 AM source source source data data data OXYCODO NEGATIV NEGATIV No No No Jun 12 NE E E informa informa informa 2016 tion in tion in tion in 6:58 AM source source source data data data CANNABI NEGATIV NEGATIV No No No Jun 12 NOIDS E E informa informa informa 2016 tion in tion in tion in 6:58 AM source source source data data data METHADO NEGATIV NEGATIV No No * * * Jun 12 NE E E informa informa SHELLY 2016 tion in tion in DRUG 6:58 AM source source SCREEN data data TESTING * * SCREEN+ indicat es Presump tive Positiv e *Presum ptive Positiv e results are not confirm ed by GCMS.Th e submitt ed specime n was tested for the presenc e of the followi ngsubst ances at or above the indicat ed detecti on limit.A ll cutoffs are measure d in ng/ml:A mphetam wing >500 Barbitu rates >200 Benzodi azepine s >100Can nabinoi ds >100 Cocaine >150 Opiates >300Oxy codone >100 Methado ne >300Res ults for clinica l use only. COMP METAB PANEL Observa Value Referen Units Interpr Notes Date tion ce etation Range PLASMA No No No No Jun 11 informa informa informa informa 2015 tion in tion in tion in tion in 11:00 source source source source PM data data data data SODIUM 139 137 - mmol/L No No Jun 11 145 informa informa 2015 tion in tion in 11:00 source source PM data data POTASSI 3.8 3.5 - mmol/L No No Jun 11 UM 5.1 informa informa 2015 tion in tion in 11:00 source source PM data data CHLORID 100 100 - mmol/L No No Jun 11 E 108 informa informa 2016 tion in tion in 11:00 source source PM data data CO2 24 22 - 30 mmol/L No No Jun 11 TOTAL informa informa 2016 tion in tion in 11:00 source source PM data data GLUCOSE 99 65 - mg/dL No No Jun 11 110 informa informa 2016 tion in tion in 11:00 source source PM data data BUN 16 7 - 20 mg/dL No No Jun 11 informa informa 2016 tion in tion in 11:00 source source PM data data CREATIN 0.82 0.70 - mg/dL No No Jun 11 INE 1.40 informa informa 2016 tion in tion in 11:00 source source PM data data CALCIUM 9.4 8.4 - mg/dL No No Jun 11 10.2 informa informa 2016 tion in tion in 11:00 source source PM data data ANION 16 7 - 15 mmol/L No No Jun 11 GAP informa informa 2016 tion in tion in 11:00 source source PM data data ALK 35 38 - U/L No No Jun 11 PHOS 126 informa informa 2016 tion in tion in 11:00 source source PM data data AST 22 10 - 50 U/L No No Jun 11 (SGOT) informa informa 2015 tion in tion in 11:00 source source PM data data ALT 29 20 - 70 U/L No No Jun 11 (SGPT) informa informa 2016 tion in tion in 11:00 source source PM data data TOT 0.2 0.2 - mg/dL No No Jun 11 BILIRUB 1.0 informa informa 2015 IN tion in tion in 11:00 source source PM data data TOTAL 7.9 6.3 - g/dL No No Jun 11 PROTEIN 8.2 informa informa 2015 tion in tion in 11:00 source source PM data data ALBUMIN 4.6 3.5 - g/dL No No Jun 11 5.0 informa informa 2016 tion in tion in 11:00 source source PM data data GFR >90 No mL/min No This Jun 11 ESTIMAT informa informa eGFR is 2016 ED tion in tion in NOT 11:00 source source FOR PM data data DRUG DOSE ADJUSTM ENTStag e of Kidney Disease eGFR1 >=90 mL/min2 60-893 30-594 15-295 <=14The Estimat ed Glomeru lar Filtrat ion Ratebas ed on CKD-EPI adjuste d for age, sex,and race is validat ed for ages 18-70 years. CBC WITH DIFF Observa Value Referen Units Interpr Notes Date tion ce etation Range WHOLEBL No No No No Jun 11 D informa informa informa informa 2016 tion in tion in tion in tion in 11:00 source source source source PM data data data data WBC 8.7 4.10 - Thou/mm No No Jun 11 10.80 3 informa informa 2016 tion in tion in 11:00 source source PM data data RBC 4.33 4.37 - Million No No Jun 11 5.74 /mm3 informa informa 2016 tion in tion in 11:00 source source PM data data HGB 13.9 13.7 - gm/dL No No Jun 11 17.5 informa informa 2016 tion in tion in 11:00 source source PM data data HCT 40.2 40.1 - % No No Jun 11 51.0 informa informa 2016 tion in tion in 11:00 source source PM data data MCV 92.8 79.0 - fl No No Jun 11 92.2 informa informa 2016 tion in tion in 11:00 source source PM data data MCH 32.1 25.6 - PG No No Jun 11 32.2 informa informa 2016 tion in tion in 11:00 source source PM data data MCHC 34.6 32.3 - g/dL No No Jun 11 36.5 informa informa 2016 tion in tion in 11:00 source source PM data data RDW 13.1 11.7 - % No No Jun 11 15.2 informa informa 2016 tion in tion in 11:00 source source PM data data PLT 229 140 - Thou/mm No No Jun 11 370 3 informa informa 2016 tion in tion in 11:00 source source PM data data MPV 10.7 9.4 - fl No No Jun 11 12.4 informa informa 2016 tion in tion in 11:00 source source PM data data NEUTROP 63.1 34.0 - % No No Jun 11 HIL% 69.5 informa informa 2016 tion in tion in 11:00 source source PM data data LYMPH% 27.7 20.0 - % No No Jun 11 53.0 informa informa 2016 tion in tion in 11:00 source source PM data data MONOCYT 6.5 5.0 - % No No Jun 11 E% 12.5 informa informa 2016 tion in tion in 11:00 source source PM data data EOSINOP 2.4 0.7 - % No No Jun 11 HIL% 6.0 informa informa 2016 tion in tion in 11:00 source source PM data data BASOPHI 0.1 0.0 - % No No Jun 11 L% 2.0 informa informa 2016 tion in tion in 11:00 source source PM data data IMM 0.2 0.0 - % No No Jun 11 GRAN% 0.7 informa informa 2016 tion in tion in 11:00 source source PM data data ABS 5.5 1.70 - Thou/mm No No Jun 11 NEUTROP 6.00 3 informa informa 2016 HIL # tion in tion in 11:00 source source PM data data NRBCS 0.0 No No No No Jun 11 informa informa informa informa 2016 tion in tion in tion in tion in 11:00 source source source source PM data data data data ETHANOL Observa Value Referen Units Interpr Notes Date tion ce etation Range SERUM No No No No Jun 11 informa informa informa informa 2016 tion in tion in tion in tion in 11:00 source source source source PM data data data data ETHANOL <10 0 - 10 mg/dL No This Jun 11 QUANT informa test is 2016 tion in for 11:00 source clinica PM data l use only COLLECT Marcell AVILA No No No No Jun 11 ED BY informa informa informa informa 2016 tion in tion in tion in tion in 11:00 source source source source PM data data data data TECH ID K No No No No Jun 11 ORTEGA informa informa informa informa 2016 tion in tion in tion in tion in 11:00 source source source source PM data data data data LITHIUM, RANDOM Observa Value Referen Units Interpr Notes Date tion ce etation Range SERUM No No No No Jun 11 informa informa informa informa 2016 tion in tion in tion in tion in 11:00 source source source source PM data data data data LITHIUM 0.90 0.60 - mEq/L No No Jun 11 1.20 informa informa 2016 tion in tion in 11:00 source source PM data data DRUG SCREEN URINE SHELLY Observa Value Referen Units Interpr Notes Date tion ce etation Range URINE No No No No Jun 11 informa informa informa informa 2016 tion in tion in tion in ti in 10:53 source source source source PM data data data data AMPHETA NEGATIV NEGATIV No No No Jun 11 MINES E E informa informa informa 2016 tion in ti in ti in 10:53 source source source PM data data data BARBITU NEGATIV NEGATIV No No No Jun 11 RATES E E informa informa informa 2016 tion in ti in ti in 10:53 source source source PM data data data COCAINE NEGATIV NEGATIV No No No Jun 11 METAB E E informa informa informa 2016 tion in ti in ti in 10:53 source source source PM data data data OPIATES NEGATIV NEGATIV No No No Jun 11 E E informa informa informa 2016 ti in ti in ti in 10:53 source source source PM data data data BENZODI NEGATIV NEGATIV No No No Jun 11 AZEPINE E E informa informa informa 2016 S tion in ti in ti in 10:53 source source source PM data data data OXYCODO NEGATIV NEGATIV No No No Jun 11 NE E E informa informa informa 2016 tion in ti in ti in 10:53 source source source PM data data data CANNABI NEGATIV NEGATIV No No No Jun 11 NOIDS E E informa informa informa 2015 ti in ti in ti in 10:53 source source source PM data data data METHADO NEGATIV NEGATIV No No * * * Jun 11 NE E E informa informa SHELLY 2015on in tion in DRUG 10:53 source source SCREEN PM data data TESTING * * SCREEN+ indicat es Presump tive Positiv e *Presum ptive Positiv e results are not confirm ed by GCMS.Th e submitt ed specime n was tested for the presenc e of the followi ngsubst ances at or above the indicat ed detecti on limit.A ll cutoffs are measure d in ng/ml:A mphetam wing >500 Barbitu rates >200 Benzodi azepine s >100Can nabinoi ds >100 Cocaine >150 Opiates >300Oxy codone >100 Methado ne >300Res ults for clinica l use only. TSH Observa Value Referen Units Interpr Notes Date tion ce etation Range PLASMA No No No No Sep 4 informa informa informa informa 2015 tion in tion in tion in tion in 11:21 source source source source AM data data data data TSH 5.60 0.46 - UIU/mL No No Sep 4 4.68 informa informa 2015 tion in tion in 11:21 source source AM data data LITHIUM, RANDOM Observa Value Referen Units Interpr Notes Date tion ce etation Range SERUM No No No No Sep 4 informa informa informa informa 2015 tion in tion in tion in tion in 11:21 source source source source AM data data data data LITHIUM 0.20 0.60 - mEq/L No No Sep 4 1.20 informa informa 2015 tion in tion in 11:21 source source AM data data COMP METAB PANEL Observa Value Referen Units Interpr Notes Date tion ce etation Range PLASMA No No No No Sep 1 informa informa informa informa 2015 tion in tion in tion in tion in 1:50 AM source source source source data data data data SODIUM 139 137 - mmol/L No No Sep 1 145 informa informa 2015 tion in tion in 1:50 AM source source data data POTASSI 3.8 3.5 - mmol/L No No Sep 1 UM 5.1 informa informa 2015 tion in tion in 1:50 AM source source data data CHLORID 99 100 - mmol/L No No Sep 1 E 108 informa informa 2015 tion in tion in 1:50 AM source source data data CO2 26 22 - 30 mmol/L No No Sep 1 TOTAL informa informa 2015 tion in tion in 1:50 AM source source data data GLUCOSE 106 65 - mg/dL No No Sep 1 110 informa informa 2015 tion in tion in 1:50 AM source source data data BUN 13 7 - 20 mg/dL No No Sep 1 informa informa 2015 tion in tion in 1:50 AM source source data data CREATIN 0.97 0.70 - mg/dL No No Sep 1 INE 1.40 informa informa 2015 tion in tion in 1:50 AM source source data data CALCIUM 9.4 8.4 - mg/dL No No Sep 1 10.2 informa informa 2014 tion in tion in 1:50 AM source source data data ANION 15 7 - 15 mmol/L No No Sep 1 GAP informa informa 2014 tion in tion in 1:50 AM source source data data ALK 56 38 - U/L No No Sep 1 PHOS 126 informa informa 2014 tion in tion in 1:50 AM source source data data AST 25 10 - 50 U/L No No Sep 1 (SGOT) informa informa 2014 tion in tion in 1:50 AM source source data data ALT 40 20 - 70 U/L No No Sep 1 (SGPT) informa informa 2014 tion in tion in 1:50 AM source source data data TOT 0.4 0.2 - mg/dL No No Sep 1 BILIRUB 1.0 informa informa 2014 IN tion in tion in 1:50 AM source source data data TOTAL 7.5 6.3 - g/dL No No Sep 1 PROTEIN 8.2 informa informa 2014 tion in tion in 1:50 AM source source data data ALBUMIN 4.4 3.5 - g/dL No No Sep 1 5.0 informa informa 2014 tion in tion in 1:50 AM source source data data GFR >90 No mL/min No This Sep 1 ESTIMAT informa informa eGFR is 2015 ED tion in tion in NOT 1:50 AM source source FOR data data DRUG DOSE ADJUSTM ENTStag e of Kidney Disease eGFR1 >=90 mL/min2 60-893 30-594 15-295 <=14The Estimat ed Glomeru lar Filtrat ion Ratebas ed on CKD-EPI adjuste d for age, sex,and race is validat ed for ages 18-70 years. LITHIUM, RANDOM Observa Value Referen Units Interpr Notes Date tion ce etation Range SERUM No No No No Sep 1 informa informa informa informa 2014 tion in tion in tion in tion in 1:50 AM source source source source data data data data LITHIUM <0.20 0.60 - mEq/L No No Sep 1 1.20 informa informa 2015 tion in tion in 1:50 AM source source data data ETHANOL Observa Value Referen Units Interpr Notes Date tion ce etation Range SERUM No No No No Sep 1 informa informa informa informa 2015 tion in tion in tion in tion in 1:50 AM source source source source data data data data ETHANOL <10 0 - 10 mg/dL No This Sep 1 QUANT informa test is 2015 tion in for 1:50 AM source clinica data l use only COLLECT L [place] No No No No Sep 1 ED BY informa informa informa informa 2015 tion in tion in tion in tion in 1:50 AM source source source source data data data data TECH ID K No No No No Sep 1 ORTEGA informa informa informa informa 2015 tion in tion in tion in tion in 1:50 AM source source source source data data data data CBC WITH DIFF Observa Value Referen Units Interpr Notes Date tion ce etation Range WHOLEBL No No No No Sep 1 D informa informa informa informa 2015 tion in tion in tion in tion in 1:50 AM source source source source data data data data WBC 11.1 4.10 - Thou/mm No No Sep 1 10.80 3 informa informa 2015 tion in tion in 1:50 AM source source data data RBC 4.85 4.37 - Million No No Sep 1 5.74 /mm3 informa informa 2015 tion in tion in 1:50 AM source source data data HGB 14.9 13.7 - gm/dL No No Sep 1 17.5 informa informa 2015 tion in tion in 1:50 AM source source data data HCT 43.3 40.1 - % No No Sep 1 51.0 informa informa 2015 tion in tion in 1:50 AM source source data data MCV 89.3 79.0 - fl No No Sep 1 92.2 informa informa 2015 tion in tion in 1:50 AM source source data data MCH 30.7 25.6 - PG No No Sep 1 32.2 informa informa 2015 tion in tion in 1:50 AM source source data data MCHC 34.4 32.3 - g/dL No No Sep 1 36.5 informa informa 2015 tion in tion in 1:50 AM source source data data RDW 13.0 11.7 - % No No Sep 1 15.2 informa informa 2015 tion in tion in 1:50 AM source source data data PLT 211 140 - Thou/mm No No Sep 1 370 3 informa informa 2015 tion in tion in 1:50 AM source source data data MPV 10.3 8.7 - fl No No Sep 1 12.0 informa informa 2015 tion in tion in 1:50 AM source source data data NEUTROP 70.4 34.0 - % No No Sep 1 HIL% 69.5 informa informa 2015 tion in tion in 1:50 AM source source data data LYMPH% 25.4 20.0 - % No No Sep 1 53.0 informa informa 2015 tion in tion in 1:50 AM source source data data MONOCYT 2.9 5.0 - % No No Sep 1 E% 12.5 informa informa 2015 tion in tion in 1:50 AM source source data data EOSINOP 0.9 0.7 - % No No Sep 1 HIL% 6.0 informa informa 2014 tion in tion in 1:50 AM source source data data BASOPHI 0.1 0.0 - % No No Sep 1 L% 2.0 informa informa 2014 tion in tion in 1:50 AM source source data data IMM 0.3 0.0 - % No No Sep 1 GRAN% 0.7 informa informa 2014 tion in tion in 1:50 AM source source data data ABS 7.8 1.70 - Thou/mm No No Sep 1 NEUTROP 6.00 3 informa informa 2015 HIL # tion in tion in 1:50 AM source source data data NRBCS 0.0 No No No No Sep 1 informa informa informa informa 2015 tion in tion in tion in tion in 1:50 AM source source source source data data data data DRUG SCREEN URINE SHELLY Observa Value Referen Units Interpr Notes Date tion ce etation Range URINE No No No No Sep 1 informa informa informa informa 2015 tion in tion in tion in tion in 1:40 AM source source source source data data data data AMPHETA NEGATIV NEGATIV No No No Sep 1 MINES E E informa informa informa 2014 tion in tion in tion in 1:40 AM source source source data data data BARBITU NEGATIV NEGATIV No No No Sep 1 RATES E E informa informa informa 2014 tion in tion in tion in 1:40 AM source source source data data data COCAINE NEGATIV NEGATIV No No No Sep 1 METAB E E informa informa informa 2014 tion in tion in tion in 1:40 AM source source source data data data OPIATES NEGATIV NEGATIV No No No Sep 1 E E informa informa informa 2014 tion in tion in tion in 1:40 AM source source source data data data BENZODI NEGATIV NEGATIV No No No Sep 1 AZEPINE E E informa informa informa 2014 S tion in tion in tion in 1:40 AM source source source data data data OXYCODO NEGATIV NEGATIV No No No Sep 1 NE E E informa informa informa 2014 tion in tion in tion in 1:40 AM source source source data data data CANNABI NEGATIV NEGATIV No No No Sep 1 NOIDS E E informa informa informa 2014 tion in tion in tion in 1:40 AM source source source data data data METHADO NEGATIV NEGATIV No No * * * Sep 1 NE E E informa informa SHELLY 2014 tion in tion in DRUG 1:40 AM source source SCREEN data data TESTING * * SCREEN+ indicat es Presump tive Positiv e *Presum ptive Positiv e results are not confirm ed by GCMS.Th e submitt ed specime n was tested for the presenc e of the followi ngsubst ances at or above the indicat ed detecti on limit.A ll cutoffs are measure d in ng/ml:A mphetam wing >500 Barbitu rates >200 Benzodi azepine s >100Can nabinoi ds >100 Cocaine >150 Opiates >300Oxy codone >100 Methado ne >300Res ults for clinica l use only. ETHANOL Observa Value Referen Units Interpr Notes Date tion ce etation Range SERUM No No No No Nov 04 informa informa informa informa 2013 tion in tion in tion in tion in 9:56 AM source source source source data data data data ETHANOL <10 0 - 10 mg/dL No This Nov 04 QUANT informa test is 2014 in for 9:56 AM source clinica data l use only COLLECT L.CHRISSY No No No No Nov 04 ED BY informa informa informa informa 2014 tion in tion in tion in tion in 9:56 AM source source source source data data data data TECH ID FEDE No No No No Nov 04 informa informa informa informa 2014 tion in tion in tion in tion in 9:56 AM source source source source data data data data DRUG SCREEN URINE SHELLY Observa Value Referen Units Interpr Notes Date tion ce etation Range URINE No No No No Nov 04 informa informa informa informa 2014 tion in tion in tion in tion in 9:56 AM source source source source data data data data AMPHETA NEGATIV NEGATIV No No No Nov 04 MINES E E informa informa informa 2013 tion in tion in tion in 9:56 AM source source source data data data BARBITU NEGATIV NEGATIV No No No Nov 04 RATES E E informa informa informa 2013 tion in tion in tion in 9:56 AM source source source data data data COCAINE NEGATIV NEGATIV No No No Nov 04 METAB E E informa informa informa 2013 tion in tion in tion in 9:56 AM source source source data data data OPIATES NEGATIV NEGATIV No No No Nov 04 E E informa informa informa 2013 tion in tion in tion in 9:56 AM source source source data data data BENZODI NEGATIV NEGATIV No No No Nov 04 AZEPINE E E informa informa informa 2014 S tion in tion in tion in 9:56 AM source source source data data data OXYCODO NEGATIV NEGATIV No No No Nov 04 NE E E informa informa informa 2013 tion in tion in tion in 9:56 AM source source source data data data CANNABI NEGATIV NEGATIV No No No Nov 04 NOIDS E E informa informa informa 2013 tion in tion in tion in 9:56 AM source source source data data data METHADO NEGATIV NEGATIV No No * * * Nov 04 NE E E informa informa SHELLY 2013 tion in tion in DRUG 9:56 AM source source SCREEN data data TESTING * * SCREEN+ indicat es Presump tive Positiv e *Presum ptive Positiv e results are not confirm ed by GCMS.Th e submitt ed specime n was tested for the presenc e of the followi ngsubst ances at or above the indicat ed detecti on limit.A ll cutoffs are measure d in ng/ml:A mphetam wing >500 Barbitu rates >200 Benzodi azepine s >100Can nabinoi ds >100 Cocaine >150 Opiates >300Oxy codone >100 Methado ne >300Res ults for clinica l use only.
== END 2017-03-06 02:04 | disposition home or self-care (01) ==
LOC: ER 00:04
PROVIDERS: Emergency Medicine
DX: F20.9 Schizophrenia, unspecified (principal); I10 Essential (primary) hypertension; F17.210 Nicotine dependence, cigarettes, uncomplicated